=== PATIENT | female | born 1950 | race Caucasian/White ===

== ENCOUNTER → 2017-02-25 | Outpatient (CLI) | payer OTHER ==
[2017-02-25 13:17] LABS: BASO % 0.2 %; BASO ABS # 0.01 K/uL (0-0.2); COMPLETE YES; EOS % 0.7 %; HEMATOCRIT 39.8 % (37-47); IG% 0.2 %; LYMPH % 37.5 %; LYMPH ABS # 1.59 K/uL (1.2-3.4); MEAN CELL VOLUME 90.5 fL (80-100); MEAN CORPUSCULAR HEMOGLOBIN 31.1 pg (25-34); MEAN CORPUSCULAR HGB CONC 34.4 g/dl (32-36); MEAN PLATELET VOLUME 9.6 fL (7.4-10.4); MONO % 21.9 %; NEUT % 39.5 %; PLATELET COUNT 386 K/uL (130-400); WHITE BLOOD COUNT 4.24 K/uL (4.8-10.8)
[2017-02-25 13:39] LABS: ALB/GLOB RATIO 0.7 (0.9-2); ALT/SGPT 20 U/L (12-78); AST/SGOT 20 U/L (15-37); BLOOD UREA NITROGEN 13 mg/dl (7-18); BUN/CREATININE RATIO 17.2 (10-20); CALCIUM 9.1 mg/dl (8.5-10.1); CARBON DIOXIDE 30 mmol/L (21-32); CHLORIDE 102 mmol/L (98-107); CREATININE 0.76 mg/dl (0.60-1.20); GLUCOSE 82 mg/dl (70-99); POTASSIUM 3.8 mmol/L (3.5-5.1); SODIUM 136 mmol/L (136-145)
[2017-02-25 13:41] LABS: ALKALINE PHOSPHATASE 112 U/L (45-117); CHOLESTEROL 199 mg/dl (0-200); CHOLESTEROL/HDL RATIO 4.2; HDL CHOLESTEROL 47 mg/dl; LDL CHOLESTEROL CALCULATED 119 mg/dl; TRIGLYCERIDES 166 mg/dl (0-150); VERY LOW DENSITY LIPOPROT CALC 33 mg/dl
== END | disposition home or self-care (01) ==
LOC: C.LABMFLN 08:58
PROVIDERS: ATTEND Family Medicine
DX: R06.02 Shortness of breath (principal)

== ENCOUNTER → 2017-02-25 | Outpatient (CLI) | payer OTHER | END | disposition home or self-care (01) | LOC: C.PAPS 14:28 | PROVIDERS: ATTEND Family Medicine | DX: Z12.4 Encounter for screening for malignant neoplasm of cervix (principal) ==

== ENCOUNTER → 2017-03-19 | Outpatient (CLI) | payer OTHER ==
[~2017-03-19] MED LIST: REGADENOSON 0.4 MG/5 ML SYR ONE
--- NOTE | 2017-03-20 23:58 | MYOCARDIAL PERFUSION SCAN ---
ONE-DAY NUCLEAR MEDICINE TECHNETIUM-99M CARDIOLITE MYOCARDIAL PERFUSION SCAN CLINICAL HISTORY: The patient has been experiencing progressive exertional dyspnea. COMPARISON: None. TECHNIQUE: For the stress portion of the study, 32.3 mCi of Technetium 99 m Cardiolite IV was injected at 1:05 p.m. on 03/19/2017. 30 minutes following the injection, imaging of the heart was performed in multiple projection. For the rest portion of the study, 10.2 mCi of Technetium 99 m Cardiolite was injected IV at 11:30 a.m. One hour following the injection, imaging of the heart was performed in the same projections. For the stress portion of the study, 0.4 mg of Lexiscan was injected intravenously as per protocol. The patient did not experience chest discomfort. Baseline EKG showed normal sinus rhythm without abnormalities. There were no ST segment changes seen with the Lexiscan infusion. Following the study, the patient was hemodynamically stable without complaints. FINDINGS: The short axis, vertical long axis, horizontal long axis images were reviewed in detail. There is normal tracer uptake at both stress and rest. This rules out prior myocardial infarction and evidence of stress induced myocardial ischemia. The left ventricle demonstrates normal systolic function without wall motion abnormality. The left ventricular ejection fraction is 59%. IMPRESSION: 1. No scintigraphic evidence of a prior myocardial infarction or stress induced myocardial ischemia. 2. No Lexiscan induced chest pain. 3. No Lexiscan induced EKG changes. 4. Normal left ventricular systolic function without wall motion abnormality. Left ventricular ejection fraction is 59%.
== END | disposition home or self-care (01) ==
LOC: C.NUCL 11:00
PROVIDERS: ATTEND Family Medicine
DX: R06.02 Shortness of breath (principal)

== ENCOUNTER → 2017-06-03 | Outpatient (CLI) | payer OTHER ==
[2017-06-03 13:31] LABS: CHOLESTEROL/HDL RATIO 2.6
== END | disposition home or self-care (01) ==
LOC: C.LABMFLN 08:40
PROVIDERS: ATTEND Family Medicine
DX: E78.00 Pure hypercholesterolemia, unspecified (principal)

== ENCOUNTER 2017-08-07 09:08 | Inpatient (IN) | payer OTHER ==
[2017-07-05 14:29] VITALS: BMI 28.0
--- NOTE | 2017-07-05 15:03 | PAT Medication Instructions ---
Service Date Jul 05, 2017. Current Home Medication List Acetaminophen (Tylenol 8 Hour Arthritis), 2 TAB PO QAM PRN for Pain Atorvastatin (Lipitor), 10 MG PO QAM Calcium/Vitamin D (Os-Rakesh 500 Plus D), 1 TAB PO HS Cevimeline Hcl (Cevimeline Hcl), 1 TAB PO BID Fish Oil (Houston-3), 1 CAP PO QAM Glucosamine-Chondroitin (Osteo Bi-Flex Regular Str), 1 TAB PO BID Multiple Vitamins W/ Minerals (Centrum Silver 50+Women), 1 TAB PO QAM Omeprazole (Prilosec), 20 MG PO QAM Turmeric (Curcuma Longa) (Turmeric), 1 TAB PO QAM Medication Instructions For Your Scheduled Surgery - Hold the following medications 2 weeks prior to surgery: Glucosamine-Chondroitin (Osteo Bi-Flex Regular Str), 1 TAB PO BID Turmeric (Curcuma Longa) (Turmeric), 1 TAB PO QAM Fish Oil (Houston-3), 1 CAP PO QAM - Hold the following medications the morning of surgery: Multiple Vitamins W/ Minerals (Centrum Silver 50+Women), 1 TAB PO QAM - Take the following medications the morning of surgery with a sip of water OTHERWISE NOTHING TO EAT OR DRINK AFTER MIDNIGHT: Acetaminophen (Tylenol 8 Hour Arthritis), 2 TAB PO QAM PRN for Pain (may take if needed up 4 hours prior to surgery) Atorvastatin (Lipitor), 10 MG PO QAM Omeprazole (Prilosec), 20 MG PO QAM Cevimeline Hcl (Cevimeline Hcl), 1 TAB PO BID - Take the following medications as scheduled the night before surgery: Acetaminophen (Tylenol 8 Hour Arthritis), 2 TAB PO QAM PRN for Pain Cevimeline Hcl (Cevimeline Hcl), 1 TAB PO BID Calcium/Vitamin D (Os-Rakesh 500 Plus D), 1 TAB PO HS If you have any questions please call us at [phone] or [phone] or [phone]
[2017-07-05 15:34] LABS: BASO % 0.2 %; BASO ABS # 0.01 K/uL (0-0.2); EOS % 0.4 %; EOS ABS # 0.02 K/uL (0-0.5); HEMATOCRIT 39.8 % (37-47); HEMOGLOBIN 13.4 g/dL (12.0-16.0); IG# 0.01 K/uL (0.00-0.02); LYMPH % 44.2 %; MEAN CORPUSCULAR HEMOGLOBIN 31.3 pg (25-34); MEAN CORPUSCULAR HGB CONC 33.7 g/dl (32-36); MEAN PLATELET VOLUME 9.5 fL (7.4-10.4); MONO % 16.1 %; NEUT % 38.9 %; NEUT ABS # 1.94 K/uL (1.4-6.5); PLATELET COUNT 374 K/uL (130-400); RED CELL DISTRIBUTION WIDTH CV 12.7 % (11.5-14.5); RED CELL DISTRIBUTION WIDTH SD 43.4 fL (36.4-46.3); WHITE BLOOD COUNT 4.98 K/uL (4.8-10.8)
[2017-07-05 16:26] LABS: CREATININE 0.76 mg/dl (0.60-1.20)
[2017-07-05 16:27] LABS: ALBUMIN 3.9 gm/dl (3.4-5.0); CALCIUM 9.2 mg/dl (8.5-10.1); POTASSIUM 3.9 mmol/L (3.5-5.1)
[2017-07-06 07:46] LABS: HEMOGLOBIN A1C 5.7 % (4.5-5.6)
--- NOTE | 2017-08-06 12:28 | HISTORY & PHYSICAL EXAMINATION ---
DATE OF ADMISSION: 08/07/2017 CHIEF COMPLAINT: Chronic right knee pain. HISTORY OF PRESENT ILLNESS: This is a 67-year-old female patient of Dr. Mo'josue complaining of chronic right knee pain, longstanding, now progressively getting worse. The patient has failed conservative treatment including intraarticular injections, over the counter Osteo Bi-Flex and turmeric. She has also tried several braces. The patient has increased pain with weightbearing activities and her pain does interfere with her activities of daily living. PAST MEDICAL HISTORY: Hypercholesterolemia, acid reflux, and dental issues. SOCIAL HISTORY: Nonsmoker and nondrinker. PAST SURGICAL HISTORY: Shoulder surgery. FAMILY HISTORY: Noncontributory. REVIEW OF SYSTEMS: Chronic right knee pain and instability. Otherwise denies any shortness of breath, chest pain, nausea, vomiting or any other joint complaints. MEDICATIONS: Omeprazole 20 mg daily, vitamin D3 400 units daily, multivitamin with fluoride daily, calcium 600 plus D 600 mg daily, calcium 200 daily, loratadine 10 mg daily, cevimeline 30 mg t.i.d., atorvastatin 10 mg daily, and omega 3 fish oil daily. ALLERGIES: No known drug allergies. PHYSICAL EXAMINATION: GENERAL: Well-developed, well-nourished 67-year-old female in no acute distress. She is alert and oriented x3 and pleasant. HEENT: Normocephalic, atraumatic. Extraocular motions are intact. Pupils are equal and reactive to light. HEART: Regular rate and rhythm, no murmurs appreciated. LUNGS: Clear. ABDOMEN: Soft, nontender, bowel sounds present. EXTREMITIES: Right knee - limited range of motion of negative 5-110. She has medial joint line tenderness with crepitation with a varus deformity. She has a mild effusion. She has 4/5 strength. NEUROLOGIC: Neurovascularly, she is intact in her right lower extremity. DIAGNOSES: Right knee end-stage osteoarthritis, hypercholesterolemia, acid reflux and dental issues. PLAN: The patient was advised of her diagnosis. Indications, risks, benefits, and postop course have all been reviewed. The patient wished to proceed with a right total knee arthroplasty. Necessary consent forms, preoperative testing and clearances will be obtained.
[2017-08-07] VITALS (7 sets, daily range): BP systolic 108–144; BP diastolic 71–93; PULSE 79–106; TEMP 36.4–36.9; O2SAT 95–98; Ht 165.1 cm; Wt 77.5 kg
[~2017-08-07] VITALS: Ht 165.1 cm; Wt 77.5 kg
[2017-08-07] MEDS: TRANEXAMIC ACID INJ 1,000 MG in SYRINGE 0 ML IV SCH ×2 (06:30→12:27)
[~2017-08-07 09:08] MED LIST changes: +ACET650T97 PO; +ACETAMINOPHEN 500 MG TAB PO SCH; +ATOR10TA82 PO; +BUPIVACAINE 0.25% 30 ML VIAL ONE; +BUPIVACAINE 0.5 % 5 MG/1 ML PF 10ML VIAL ONE; +CALC500C70 PO; +CEFAZOLIN 2000MG IV PUSH 15 ML IV SCH; +CEVI1CAP PO; +CeleBREX 200 MG CAP PO SCH; +DEXAMETHASONE 4 MG TAB PO SCH; +FAMOTIDINE 20 MG TAB PO SCH; +GABAPENTIN 300 MG CAP PO SCH; +GLUCTAB18 PO; +LACTATED RINGER'S 1000ML 1,000 ML IV SCH; +LACTATED RINGER'S 1000ML 500 ML IV SCH; +METOCLOPRAMIDE HCL 10 MG TAB PO SCH; +MULT-1092 PO; +OMEG10007 PO; +PRLSR20 PO; -REGADENOSON 0.4 MG/5 ML SYR ONE; +ROPIVACAINE 5MG/ML 30 ML 150 MG, BUPIVACAINE 0.5% MPF INJ 30 ML, EpINEphrine HCL INJ 0.... INFIL SCH; +TURM500T PO
[2017-08-07] MEDS ORDERED: MIDAZOLAM HCL 1 MG/ML 2ML VIAL ONE ×2 (10:35)
[2017-08-07] MEDS ORDERED: FENTANYL CITRATE INJ 50 MCG/1 ML 2 ML VIAL ONE (10:35)
[2017-08-07] MEDS ORDERED: PROPOFOL IV EMULSION 10 MG/ML 20 ML VIAL IV ONE ×2 (10:36→13:08)
[2017-08-07] MEDS ORDERED: LIDOCAINE HCL 2% 2 ML VIAL (20MG/ML) ONE (10:36)
[2017-08-07] MEDS ORDERED: EpHEDrine SULFATE 50MG/5ML SYR ONE (10:36)
--- NOTE | 2017-08-07 12:24 | History & Physical Bridge Note ---
H&P Re-Evaluation Bridge Note: I have examined the patient, reviewed the History & Physical and in the interval since the performance of the History & Physical I have noted the following changes of clinical significance: No changes noted
[2017-08-07] MEDS ORDERED: POVIDONE-IODINE OP SOLN 30 ML BTL ONE (12:28)
[2017-08-07] MEDS ORDERED: BACITRACIN 50000 UNIT VIAL ONE (12:28)
[2017-08-07] MEDS ORDERED: ORTHO JOINT ANESTHETIC ONE (12:28)
[2017-08-07] MEDS ORDERED: ATROPINE SULFATE 0.1 MG/ML 5ML SYR IV PRN (14:45)
[2017-08-07] MEDS ORDERED: EpHEDrine SULFATE INJ 50 MG/ML AMP IV PRN (14:45)
--- NOTE | 2017-08-07 14:51 | [facility] Post Operative Brief Note ---
Immediate Operative Summary Operative Date Aug 07, 2017. Pre-Operative Diagnosis Right Knee End Stage Osteoarthritis Post-Operative Diagnosis Right Knee End State Osteoarthritis Procedure(s) Performed Right Total Knee Arthroplasty Surgeon Dr. Mo Merchandise Supervisor Surgeon(s) Mann Ferreira PA-C Estimated Blood Loss 10ml Findings Consistent with Post-Op Diagnosis Specimens A: Right knee bone and tissue Drains 2 hemovac Anesthesia Type MAC Spinal Regional Complication(s) none
[2017-08-07] MEDS ORDERED: BISACODYL 10 MG SUPP PR PRN (15:00)
[2017-08-07] MEDS ORDERED: TRAMADOL HCL 50 MG TAB PO PRN (15:00)
[2017-08-07] MEDS ORDERED: ONDANSETRON INJ 2 MG/ML 2 ML VIAL IV PRN (15:00)
[2017-08-07] MEDS ORDERED: OXYCODONE HCL IR 5 MG TAB (IMMEDIATE RELEASE) PO PRN (15:00)
[2017-08-07] MEDS ORDERED: MoRPHine SULFATE 2 MG/ML CARP IV PRN (15:00)
[2017-08-07] MEDS ORDERED: MAGNESIUM HYDROXIDE SUSP 30 ML UDC PO PRN (15:00)
[2017-08-07] MEDS ORDERED: ZOLPIDEM TARTRATE 5 MG TAB PO PRN (15:00)
[2017-08-07] MEDS ORDERED: METOCLOPRAMIDE HCL INJ 5 MG/ML 2 ML VIAL IV PRN (15:00)
[2017-08-07] MEDS ORDERED: SOD PHOSPHATE/SOD BIPHOSPHATE ENEMA 132 ML BTL PR PRN (15:00)
--- NOTE | 2017-08-07 15:42 | Anesthesiology Progress Note ---
Anesthesia Post Op Note Date & Time Aug 07, 2017 at 15:42 Vital Signs Pain Intensity: 0 Vital Signs Past 12 Hours Date Time Temp Pulse Resp B/P (MAP) Pulse Ox O2 Delivery O2 Flow Rate FiO2 08/07/17 15:32 36.7 81 15 124/73 (86) 97 Nasal Cannula 2 08/07/17 15:26 119/74 08/07/17 15:23 89 15 08/07/17 15:23 88 15 93 08/07/17 15:22 90 13 08/07/17 15:22 90 13 95 08/07/17 15:20 130/75 08/07/17 15:17 90 15 08/07/17 15:17 88 15 96 08/07/17 15:16 101/79 08/07/17 15:12 96 12 08/07/17 15:12 95 12 92 08/07/17 15:11 127/71 08/07/17 15:07 96 15 93 08/07/17 15:07 96 15 08/07/17 15:05 114/71 08/07/17 15:02 97 15 109/70 92 08/07/17 15:02 97 15 08/07/17 15:02 36.1 98 16 109/70 95 Room Air 10 08/07/17 10:00 36.8 106 20 144/93 95 Room Air Notes Mental Status: alert / awake / arousable, participated in evaluation Pt Amnestic to Procedure: Yes Nausea / Vomiting: adequately controlled Pain: adequately controlled Airway Patency, RR, SpO2: stable & adequate BP & HR: stable & adequate Hydration State: stable & adequate Neuraxial Anesthesia: was administered, sensory block is resolving Anesthetic Complications: no major complications apparent
--- NOTE | 2017-08-07 15:51 | DIAGNOSTIC IMAGING REPORT ---
R KNEE 1 OR 2 VIEWS ROUTINE HISTORY: 67 years-old Female AP/LATERAL IN PACU RIGHT KNEE status post right knee total joint arthroplasty. Degenerative joint disease. COMPARISON: None available TECHNIQUE: 2 views of the right knee FINDINGS: Postoperative changes from recent placement of a right knee total joint arthroplasty with patellar resurfacing. Expected postsurgical soft tissue swelling and deep tissue air about the knee with anterior midline skin cristina and a surgical drain in place. Alignment is satisfactory. No periprosthetic fracture or retained foreign body. IMPRESSION: Status post placement of a right knee total joint arthroplasty with patellar resurfacing. No complication identified. The above report was generated using voice recognition software. It may contain grammatical, syntax or spelling errors. Electronically signed by: Mike Ji M.D. 08/07/2017 3:50 PM Dictated Date/Time: 08/07/2017 3:48 PM
[2017-08-07] MEDS ORDERED: MoRPHine SULFATE 4 MG/ML 1 ML CARP\\VIAL IV PRN (16:00)
[2017-08-07] MEDS: D5W AND 1/2NSS + 20MEQ KCL 1,000 ML IV SCH (16:49)
--- NOTE | 2017-08-07 18:21 | OPERATIVE REPORT ---
DATE OF OPERATION: 08/07/2017 INDICATION FOR PROCEDURE: The patient is a 67-year-old female who presents with bilateral knee pain, right greater than left. Radiographs demonstrates [id number] in the medial compartment bilaterally and patellofemoral and medial and patellofemoral joint [id number] bilateral. She has failed conservative management. Now presents for operative surgery. PREOPERATIVE DIAGNOSIS: End-stage osteoarthritis, right hip. POSTOPERATIVE DIAGNOSIS: Same. PROCEDURE: Right total knee arthroplasty. SURGEON: Clinton Mo MD. DIVIDING MACHINE OPERATOR HELPER: BRUEC Morejon. ANESTHESIA: Spinal, adductor nerve block and Orthomix. OPERATIVE PROCEDURE: The patient was taken to the operating room, anesthetized under anesthesia as dictated. Pneumatic tourniquet was placed on right upper thigh. Right lower extremity was examined. She had full range of motion of her knee and no instability. She did have crepitation and small effusion. Her right lower extremity was sterilely prepped and draped with ChloraPrep. Leg was elevated, exsanguinated with Esmarch bandage. Pneumatic tourniquet was raised to 325 mmHg. I used the [employer] Persona total knee arthroplasty system for the procedure. We made a longitudinal incision anteriorly across the knee. Skin was incised sharply. Subcutaneous flaps were elevated. Incision was made through medial retinaculum and extended up in the mid third of the quadriceps tendon extending down to the medial tibial tubercle. Intraarticular findings demonstrate she had grade 4 trochlear disease, grade 4 medial facet patellofemoral disease. Rather thin patella. She had bone on bone in the medial compartment. The cruciate ligaments were still intact. To expose the knee, we excised the infrapatellar fat pad, excising the menisci, and excised the cruciate ligaments. Some of the fat pad over the anterior femur for placement of the component in that area was resected. Lateral synovial bands were released. The traction placed exposing the femur. I used a signature MRI templating. The custom femoral cutting guide was positioned appropriately and then pinned in position and then the drill holes for the 4-in-1 cutting block were replaced. The distal femoral cut was then made. The guide was removed and then the 4-in-1 cutting block was placed. The anterior, posterior and chamfer cuts were made. Then, attention was taken to the patella. The knee was extended and a subperiosteal peel lateral release was performed around the patella. Patella width was measured and width was reproduced using freehand cut technique and a 32 x 8.5 mm domed 3 peg patella. The tibia was then subluxed and then we placed the custom tibial cutting block was pinned in position and assessed with the alignment morelia for the alignment, but it looked to be in varus, so we adjusted that, made a proximal tibial cut, but felt posterior slope was not appropriate 3 degrees, so I used an external tibial cutting guide to just posterior slope to 3 degrees proximally. We did note the bone was very soft making the cuts. We used the laminar transportation services representative to assess ligamentous balance and we had balanced extension and flexion gaps this time. The tibia was re-exposed and the size D right tibial trial was externally rotated in line with the tibial tubercle, pinned in position and then drilled and punch for the stem was used. The 9 femoral trial was inserted and centered and then we did trial polyethylene components for the medial padded knee MC component. An 11 insert gave balanced ligaments through full range of motion and patellar trial in place. Patella tracked centrally. Trials were removed. The anesthetic cocktail was injected per protocol. The knee was copiously irrigated with pulsatile lavage with antibiotic solution and bacitracin. The final components was cemented with Simplex G cement. Final components for the 9 narrow right Carleen [employer] Persona femur, the right D tibia, the 11 mm MC right poly and the 32 x 8.5 mm patella which was domed patella component. While cement cured, the Betadine soaked, we used per protocol. After the cement cured, the knee was copiously irrigated with antibiotic solution and bacitracin. Two drains were brought out laterally and then the quadriceps tendon and medial retinaculum were closed with interrupted [id number] #1 Vicryl sutures. The knee was taken through full range of motion and repair was secure. Subcutaneous tissues closed with interrupted 2-0 Vicryl, skin was closed with cristina and Silverlon dressing was applied. The patient tolerated the procedure well with about 10 mL of blood loss. Mann Ferreira PA-C, was my first aid nurse. He functioned as first aid nurse for the entire procedure. He assisted in patient positioning, prepping, draping, assisted in soft tissue retraction, leg positioning, and performed the fascial, subcutaneous and skin closure and will participate in postop care of the patient. I attest to the content of the Intraoperative Record and any orders documented therein. Any exception s are noted below.
[2017-08-07] MEDS: CALCIUM 600MG + VIT D 400 IU TAB PO SCH (20:55)
[2017-08-07] MEDS: DOCUSATE SODIUM 100 MG CAP PO SCH (20:55)
[2017-08-07] MEDS: CeleBREX 200 MG CAP PO SCH (20:56)
[2017-08-07] MEDS: ASPIRIN 81 MG ECTAB PO SCH (20:56)
[2017-08-07] MEDS: CEFAZOLIN IV SCH (20:59)
[2017-08-07] MEDS ORDERED: INFLUENZA ADMINISTRATION CHARGE ONE (21:00)
[2017-08-07] MEDS ORDERED: INFLUENZA VIRUS QUAD VACCINE 0.5 ML SYR IM. ONE (21:00)
[2017-08-07] MEDS: ACETAMINOPHEN 500 MG TAB PO SCH (21:33)
[2017-08-08] MEDS: D5W AND 1/2NSS + 20MEQ KCL 1,000 ML IV SCH ×2 (02:10→13:18)
[2017-08-08 03:47] VITALS: BP 106/68; PULSE 66; TEMP 36.7; O2SAT 98
[2017-08-08] MEDS: CEFAZOLIN IV SCH (04:02)
[2017-08-08] MEDS: ACETAMINOPHEN 500 MG TAB PO SCH ×3 (05:30→21:23)
[2017-08-08 06:54] VITALS: BP 121/86; PULSE 86; TEMP 36.6; O2SAT 99
[2017-08-08 07:01] LABS: HEMATOCRIT 32.9 % (37-47); HEMOGLOBIN 11.2 g/dL (12.0-16.0); MEAN CELL VOLUME 92.7 fL (80-100); MEAN CORPUSCULAR HEMOGLOBIN 31.5 pg (25-34); MEAN PLATELET VOLUME 9.4 fL (7.4-10.4); PLATELET COUNT 311 K/uL (130-400); RED CELL DISTRIBUTION WIDTH CV 12.7 % (11.5-14.5); RED CELL DISTRIBUTION WIDTH SD 43.3 fL (36.4-46.3); WHITE BLOOD COUNT 11.88 K/uL (4.8-10.8)
[2017-08-08 07:34] LABS: CALCIUM 8.7 mg/dl (8.5-10.1); CREATININE 0.8 mg/dl (0.60-1.20); POTASSIUM 4.2 mmol/L (3.5-5.1)
[2017-08-08] MEDS: ATORVASTATIN 10 MG TAB PO SCH (08:33)
[2017-08-08] MEDS: ASPIRIN 81 MG ECTAB PO SCH ×2 (08:34→20:51)
[2017-08-08] MEDS: MULTIVITAMIN TAB PO SCH (08:34)
[2017-08-08] MEDS: CeleBREX 200 MG CAP PO SCH ×2 (08:34→20:51)
[2017-08-08] MEDS: PANTOprazole SOD 40 MG TAB PO SCH (08:34)
[2017-08-08] MEDS: DOCUSATE SODIUM 100 MG CAP PO SCH ×2 (08:34→20:51)
--- NOTE | 2017-08-08 08:48 | Orthopedic Progress Note ---
Orthopedic Progress Note Date of Service Aug 08, 2017. Subjective Post OP Day: 1 Reports: feeling well, pain controlled w PO medications, Denies: complaints, chest pain, SOB, nausea / vomiting, light headedness, calf pain Objective calves soft nontender, N/V intact, capillary refill less than 2 sec., dressing C /D/I, A&O x3, toes mobile Date Time Temp Pulse Resp B/P (MAP) Pulse Ox O2 Delivery O2 Flow Rate FiO2 08/08/17 07:30 Room Air 08/08/17 06:54 36.6 86 19 121/86 (98) 99 Room Air 08/08/17 03:47 36.7 66 16 106/68 (81) 98 Room Air 08/07/17 23:33 Room Air 08/07/17 23:00 36.6 81 16 118/74 (89) 96 Room Air 08/07/17 19:06 36.4 88 16 108/71 (83) 98 Nasal Cannula 2.0 08/07/17 18:00 36.9 87 17 118/75 (89) 97 Nasal Cannula 2.0 08/07/17 17:03 36.4 82 16 118/75 (89) 98 Nasal Cannula 2.0 08/07/17 16:27 36.6 79 16 116/74 (88) 97 Nasal Cannula 2.0 08/07/17 16:10 Nasal Cannula 2.0 08/07/17 16:10 Nasal Cannula 2.0 08/07/17 16:00 36.4 81 16 121/74 (90) 98 Nasal Cannula 2.0 08/07/17 15:51 117/75 08/07/17 15:47 82 17 98 08/07/17 15:47 82 17 08/07/17 15:46 120/74 08/07/17 15:42 83 16 97 08/07/17 15:42 83 16 08/07/17 15:41 133/71 08/07/17 15:37 85 12 08/07/17 15:37 87 12 96 08/07/17 15:35 124/73 08/07/17 15:32 36.7 81 15 124/73 (86) 97 Nasal Cannula 2 08/07/17 15:32 94 13 95 08/07/17 15:32 93 13 08/07/17 15:30 122/77 08/07/17 15:27 88 12 95 08/07/17 15:27 87 12 08/07/17 15:26 119/74 08/07/17 15:23 89 15 08/07/17 15:23 88 15 93 08/07/17 15:22 90 13 08/07/17 15:22 90 13 95 08/07/17 15:20 130/75 08/07/17 15:17 90 15 08/07/17 15:17 88 15 96 08/07/17 15:16 101/79 08/07/17 15:12 96 12 08/07/17 15:12 95 12 92 08/07/17 15:11 127/71 08/07/17 15:07 96 15 93 08/07/17 15:07 96 15 08/07/17 15:05 114/71 08/07/17 15:02 97 15 109/70 92 08/07/17 15:02 97 15 08/07/17 15:02 36.1 98 16 109/70 95 Room Air 10 08/07/17 10:00 36.8 106 20 144/93 95 Room Air Laboratory Results 24 Hours: Test 08/08/17 06:36 Hematocrit 32.9 % Hemoglobin 11.2 g/dL Assessment & Plan Assessment: POD #1, Right TKA Plan: PT/ OT DVT proph- ASA D/C planning- Home w OPPT vs. HH Inhouse Planning Pain Management: Celebrex, Ultram, Morphine, PO Tylenol, Oxy IR DVT Prophylaxis: TEDs, SCDs, ASA Discharge Planning Discharge Planning: home with home health, home with oppt, uncertain Pain Management: Celebrex, PO Tylenol, Oxy IR DVT Prophylaxis: TEDs, ASA Therapy: Physical Therapy, Occupational Therapy
--- NOTE | 2017-08-08 12:56 | Medical Consult ---
Consultation Date of Consultation: Aug 08, 2017. Attending Physician: Clinton Mo M.D. Reason for Consultation: Post op medical management History of Present Illness Ms. Cao is feeling good. She is post op day 1. Her pain is well controlled. She has no complaints. Pmhx of Sjogren's syndrome, hypercholesteremia, acid reflux ROS Constitutional: no chills, aches, sweats or fever Respiratory: no sob,cough, sputum, or wheezing Cardiac: no chest pain, palpitations, edema, orthopnea or lightheadedness GI: no abdominal pain, nausea, vomiting, diarrhea or constipation : no dysuria or hesitancy Extremities: no joint pain or weakness Skin: no rash All other systems reviewed and negative Social History Smoking Status: Never Smoker Smokeless Tobacco Use: No Alcohol Use: occasionally (it's been about a year since the last drink) Drug Use: none Marital Status: Housing Status: lives with significant other 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 ) Allergies Coded Allergies: No Known Allergies (Unverified , 08/07/17) Current Inpatient Medications Current Inpatient Medications Medications (Trade) Dose Ordered Sig/Larry Route Start Time Stop Time Status Last Admin Dose Admin Atorvastatin Calcium (Lipitor Tab) 10 mg QAM PO 08/08/17 09:00 09/07/17 08:59 08/08/17 08:33 10 MG Calcium/Vitamin D (Caltrate Plus Tab) 1 tab HS PO 08/07/17 21:00 09/06/17 20:59 08/07/17 20:55 1 TAB Miscellaneous Information (Order Awaiting Action) 1 ea QS N/A 08/08/17 00:00 09/07/17 00:00 Potassium Chloride/Dextrose/ Sod Cl 1,000 ml @ 100 mls/hr Q10H IV 08/07/17 16:30 08/08/17 16:29 08/08/17 02:10 100 MLS/HR Celecoxib (CeleBREX CAP) 200 mg BID PO 08/07/17 21:00 09/06/17 20:59 08/08/17 08:34 200 MG Oxycodone HCl (Roxicodone Immediate Rel Tab) 1 TABLET FOR PAIN RATING... Q4H PRN PO 08/07/17 15:00 08/21/17 14:59 Morphine Sulfate (MoRPHine SULFATE INJ) 2 mg Q2H PRN IV 08/07/17 15:00 08/21/17 14:59 Acetaminophen (Tylenol Tab) 1,000 mg Q8H PO 08/07/17 22:00 09/06/17 21:59 08/08/17 05:30 1,000 MG Magnesium Hydroxide (Milk Of Magnesia Susp) 30 ml Q6H PRN PO 08/07/17 15:00 09/06/17 14:59 Bisacodyl (Dulcolax Supp) 10 mg DAILY PRN MI 08/07/17 15:00 09/06/17 14:59 Sodium Biphosphate/ Sodium Phosphate (Fleet Enema) 132 ml DAILY PRN MI 08/07/17 15:00 09/06/17 14:59 Docusate Sodium (coLACE CAP) 100 mg BID PO 08/07/17 21:00 09/06/17 20:59 08/08/17 08:34 100 MG Diphenhydramine HCl (Benadryl Cap) 25 mg Q8H PRN PO 08/07/17 15:00 09/06/17 14:59 Zolpidem Tartrate (Ambien Tab) 5 mg HSZ PRN PO 08/07/17 15:00 09/06/17 14:59 Multivitamins (Multivitamin Tab) 1 tab QAM PO 08/08/17 09:00 09/07/17 08:59 08/08/17 08:34 1 TAB Ondansetron HCl (Zofran Inj) 4 mg Q6H PRN IV 08/07/17 15:00 09/06/17 14:59 Metoclopramide HCl (Reglan Inj) 10 mg Q6H PRN IV 08/07/17 15:00 09/06/17 14:59 Pantoprazole Sodium (Protonix Tab) 40 mg QAM PO 08/08/17 09:00 08/12/17 08:59 08/08/17 08:34 40 MG Tramadol HCl (Ultram Tab) 1 tablet for pain rating... Q4H PRN PO 08/07/17 15:00 09/06/17 14:59 Aspirin (Ecotrin Tab) 81 mg BID PO 08/07/17 21:00 09/06/17 20:59 08/08/17 08:34 81 MG Morphine Sulfate (MoRPHine SULFATE INJ) 4 mg Q2H PRN IV 08/07/17 16:00 08/21/17 15:59 Physical Exam Date Time Temp Pulse Resp B/P (MAP) Pulse Ox O2 Delivery O2 Flow Rate FiO2 08/08/17 07:30 Room Air 08/08/17 06:54 36.6 86 19 121/86 (98) 99 Room Air 08/08/17 03:47 36.7 66 16 106/68 (81) 98 Room Air 08/07/17 23:33 Room Air 08/07/17 23:00 36.6 81 16 118/74 (89) 96 Room Air 08/07/17 19:06 36.4 88 16 108/71 (83) 98 Nasal Cannula 2.0 08/07/17 18:00 36.9 87 17 118/75 (89) 97 Nasal Cannula 2.0 08/07/17 17:03 36.4 82 16 118/75 (89) 98 Nasal Cannula 2.0 08/07/17 16:27 36.6 79 16 116/74 (88) 97 Nasal Cannula 2.0 08/07/17 16:10 Nasal Cannula 2.0 08/07/17 16:10 Nasal Cannula 2.0 08/07/17 16:00 36.4 81 16 121/74 (90) 98 Nasal Cannula 2.0 08/07/17 15:51 117/75 08/07/17 15:47 82 17 98 08/07/17 15:47 82 17 08/07/17 15:46 120/74 08/07/17 15:42 83 16 97 08/07/17 15:42 83 16 08/07/17 15:41 133/71 08/07/17 15:37 85 12 08/07/17 15:37 87 12 96 08/07/17 15:35 124/73 08/07/17 15:32 36.7 81 15 124/73 (86) 97 Nasal Cannula 2 08/07/17 15:32 94 13 95 08/07/17 15:32 93 13 08/07/17 15:30 122/77 08/07/17 15:27 88 12 95 08/07/17 15:27 87 12 08/07/17 15:26 119/74 08/07/17 15:23 89 15 08/07/17 15:23 88 15 93 08/07/17 15:22 90 13 08/07/17 15:22 90 13 95 08/07/17 15:20 130/75 08/07/17 15:17 90 15 08/07/17 15:17 88 15 96 08/07/17 15:16 101/79 08/07/17 15:12 96 12 08/07/17 15:12 95 12 92 08/07/17 15:11 127/71 08/07/17 15:07 96 15 93 08/07/17 15:07 96 15 08/07/17 15:05 114/71 08/07/17 15:02 97 15 109/70 92 08/07/17 15:02 97 15 08/07/17 15:02 36.1 98 16 109/70 95 Room Air 10 Laboratory Results Last 24 Hours Test 08/07/17 14:00 08/08/17 06:36 Hepatitis C Antibody Screen NEG White Blood Count 11.88 K/uL Red Blood Count 3.55 M/uL Hemoglobin 11.2 g/dL Hematocrit 32.9 % Mean Corpuscular Volume 92.7 fL Mean Corpuscular Hemoglobin 31.5 pg Mean Corpuscular Hemoglobin Concent 34.0 g/dl RDW Standard Deviation 43.3 fL RDW Coefficient of Variation 12.7 % Platelet Count 311 K/uL Mean Platelet Volume 9.4 fL Sodium Level 135 mmol/L Potassium Level 4.2 mmol/L Chloride Level 104 mmol/L Carbon Dioxide Level 26 mmol/L Anion Gap 5.0 mmol/L Blood Urea Nitrogen 14 mg/dl Creatinine 0.80 mg/dl Est Creatinine Clear Calc Drug Dose 71.2 ml/min Estimated GFR () 89.0 Estimated GFR (Non- 76.8 BUN/Creatinine Ratio 17.0 Random Glucose 144 mg/dl Calcium Level 8.7 mg/dl Assessment & Plan Ms. Cao is a 67 year old woman post op day 1 right CECIL. Post op - monitor for acute hemorrhage - cbc am - bowel regimen, pain management, dvt prophylaxis per primary team Sjogren's syndrome - continue cevimeline - patient's is bringing this from home Acid reflux - continue protonix HLD - continue statin Hyperglycemia - A1c 5.7 - check prp in am and monitor - likely transient due to stress given A1c Ms. Cao is doing well medically. The hospitalist service will sign off for now, please let us know if we can be of further help in the future. i personally examined pt and verified all marie points ailyn DENIS feeling ok overall trying to mvoe and be out of bed doing well vitals noted nad breathing unlabored no pallor or icterus hyperglycemia - stress response. f/u as outpt periodically since A1c barely into prediabetic range otherwise as above
[2017-08-08 15:11] VITALS: BP 117/73; PULSE 79; TEMP 36.7; O2SAT 100
[2017-08-08] MEDS: CEVIMELINE 30 MG CAP PO SCH (20:56)
[2017-08-08] MEDS: CALCIUM 600MG + VIT D 400 IU TAB PO SCH (21:22)
[2017-08-09] VITALS: BP 129/80; PULSE 76; TEMP 36.7; O2SAT 98
[2017-08-09] MEDS: ACETAMINOPHEN 500 MG TAB PO SCH (05:42)
[2017-08-09 06:44] LABS: HEMATOCRIT 31.5 % (37-47); HEMOGLOBIN 10.7 g/dL (12.0-16.0); MEAN CELL VOLUME 91.6 fL (80-100); MEAN CORPUSCULAR HEMOGLOBIN 31.1 pg (25-34); MEAN PLATELET VOLUME 9.4 fL (7.4-10.4); PLATELET COUNT 313 K/uL (130-400); RED CELL DISTRIBUTION WIDTH CV 12.9 % (11.5-14.5); RED CELL DISTRIBUTION WIDTH SD 43.3 fL (36.4-46.3); WHITE BLOOD COUNT 7.41 K/uL (4.8-10.8)
[2017-08-09 07:06] LABS: CALCIUM 8.4 mg/dl (8.5-10.1); CREATININE 0.74 mg/dl (0.60-1.20); POTASSIUM 3.9 mmol/L (3.5-5.1)
[2017-08-09 07:10] VITALS: BP 138/86; PULSE 86; TEMP 36.6; O2SAT 97
[2017-08-09] MEDS: PANTOprazole SOD 40 MG TAB PO SCH (08:35)
[2017-08-09] MEDS: ATORVASTATIN 10 MG TAB PO SCH (08:35)
[2017-08-09] MEDS: DOCUSATE SODIUM 100 MG CAP PO SCH (08:35)
[2017-08-09] MEDS: MULTIVITAMIN TAB PO SCH (08:35)
--- NOTE | 2017-08-09 08:42 | Orthopedic Progress Note ---
Orthopedic Progress Note Date of Service Aug 09, 2017. Subjective Post OP Day: 2 Reports: feeling well, pain controlled w PO medications, Denies: complaints, chest pain, SOB, nausea / vomiting, light headedness, calf pain Objective calves soft nontender, N/V intact, capillary refill less than 2 sec., dressing C /D/I, A&O x3, toes mobile Silverlon in tact. Date Time Temp Pulse Resp B/P (MAP) Pulse Ox O2 Delivery O2 Flow Rate FiO2 08/09/17 07:10 36.6 86 16 138/86 (103) 97 Room Air 08/09/17 00:00 36.7 76 16 129/80 (96) 98 Room Air 08/08/17 23:35 Room Air 08/08/17 15:40 Room Air 08/08/17 15:11 36.7 79 18 117/73 (88) 100 Room Air Laboratory Results 24 Hours: Test 08/09/17 06:16 Hematocrit 31.5 % Hemoglobin 10.7 g/dL Assessment & Plan Assessment: POD #2, Right TKA Plan: PT/ OT DVT proph- ASA D/C planning- Home w OPPT today. Inhouse Planning Pain Management: Celebrex, Ultram, Morphine, PO Tylenol, Oxy IR DVT Prophylaxis: TEDs, SCDs, ASA Discharge Planning Discharge Planning: home with home health, home with oppt, uncertain Pain Management: Celebrex, PO Tylenol, Oxy IR DVT Prophylaxis: TEDs, ASA Therapy: Physical Therapy, Occupational Therapy
[2017-08-09] MEDS ORDERED: ASPEC81 PO (08:45)
[2017-08-09] MEDS ORDERED: ACET-24 PO (08:45)
[2017-08-09] MEDS ORDERED: RXC5 PO (08:45)
[2017-08-09] MEDS ORDERED: CLB200 PO (08:45)
--- NOTE | 2017-08-09 08:47 | Discharge Instructions ---
Discharge Instructions Date of Service Aug 09, 2017. Admission Reason for Admission: Right Knee Osteoarthritis Discharge Discharge Diagnosis / Problem: Right TKA Discharge Goals Goal(s): Improve function Activity Recommendations Activity Limitations: as noted below . Instructions / Follow-Up Instructions / Follow-Up ACTIVITY RECOMMENDATIONS: SELF CARE INSTRUCTIONS AFTER TOTAL KNEE REPLACEMENT A. You may need to continue a physical therapy program after discharge from the hospital. There are several options available to you. Your doctor will assist you in selecting the best one for you. 1. An out-patient facility 2 to 3 times a week for therapy or home therapy. 2. Continue working on all exercises taught to you in the hospital. Your goals should be to increase bending of your knee to 90 degrees and beyond and to fully straighten your knee. B. You may progress at your own pace from walking with a walker or crutches to a cane; then to no assistive devices. C. Make walking a part of your daily routine. Be up as much as comfortable with rest periods throughout the day. Rest with leg elevation is very important. Use the ice wrap frequently for the first 3-4 weeks. D. There are no restrictions on activities. You may ride in a car, shop, participate in rn ambulatory and all social activities. E. Wear the long elastic stockings (RUBINA hose) 20 hours a day for 2 weeks after surgery. They can be removed several times a day for laundering and for a bath. F. You may shower, no tub baths until cleared by your doctor. SPECIAL CARE INSTRUCTIONS: VERY IMPORTANT TO READ AND REVIEW A. There are a few signs you need to watch for after you are home. Call [facility] if you notice any of the followin. Increased severe knee pain. Some pain is expected especially when you exercise. 2. Increased swelling in your leg or knee; pain or swelling of the calf muscle in either lower leg. 3. Any fluid drainage from the incision. 4. Shortness of breath or chest pain. B. Please call [facility] at if you have any concerns or questions about your operation or recovery. The doctor or his nurse will return your call promptly. C. You must take antibiotics before dental work, bladder, bowel or other surgery. Your doctor will provide you with a permanent care to carry describing this precaution. IMPORTANT: * REMEMBER TO TAKE ASPIRIN, 81 MG, TWICE DAILY FOR 4 WEEKS UNLESS OTHERWISE DIRECTED. THIS IS YOUR BLOOD THINNER. * HIGH RISK PATIENTS MAY BE PRESCRIBED A STRONGER BLOOD THINNER. THIS WILL BE PROVIDED AT DISCHARGE. * CALL IF INCREASED PAIN, REDNESS, DRAINAGE OR FEVER GREATER THAT 101. * WEAR RUBINA HOSE 20 HOURS PER DAY FOR 2 WEEKS. * YOU MAY HAVE A LARGE BAND-AID LIKE DRESSING (SILVERON). THIS WILL REMAIN ON YOUR INCISION FOR 7 DAYS, THEN CAN BE REMOVED. IF INCISION IS LEAKING THROUGH DRESSING, CALL THE OFFICE . FOLLOW UP VISIT: If appointment is not already scheduled: Please call [facility] to make a follow-up appointment for 2 weeks after your surgery at . Current Hospital Diet Patient's current hospital diet: Regular Diet Discharge Diet Recommended Diet: Regular Diet Procedures Procedures Performed: Right Total Knee Arthroplasty Pending Studies Studies pending at discharge: no Laboratory Results Hemoglobin A1c Test 07/05/17 15:10 Range/Units Estimated Average Glucose 117 mg/dl Hemoglobin A1c 5.7 H 4.5-5.6 % Lipid Panel Test 06/03/17 08:52 Range/Units Triglycerides Level 104 0-150 mg/dl Cholesterol Level 136 0-200 mg/dl HDL Cholesterol 53 mg/dl Cholesterol/HDL Ratio 2.6 LDL Cholesterol, Calculated 62 mg/dl Medical Emergencies . Who to Call and When: Medical Emergencies: If at any time you feel your situation is an emergency, please call 911 immediately. . Non-Emergent Contact Non-Emergency issues call your: Primary Care Provider . "Provider Documentation" section prepared by Mann Ferreira. . VTE Core Measure Inpt VTE Proph given/why not?: Other Anticoagulation (asa), T.E.D. Stockings, SCD's [place] Drug Monitoring Program Search Results: patient reviewed within database, no issues identified
[2017-08-09] MEDS: ASPIRIN 81 MG ECTAB PO SCH (09:25)
[2017-08-09] MEDS: CeleBREX 200 MG CAP PO SCH (09:25)
[2017-08-09] MEDS: CEVIMELINE 30 MG CAP PO SCH (09:25)
[2017-08-09 10:11] VITALS: BP 138/86; PULSE 86; TEMP 36.6; O2SAT 97
--- NOTE | 2017-08-12 07:03 | EDITING REQUIRED CODING QUERY ---
CODING QUERY To promote full compliance with coding requirements relating to patient care, provider participation is requested in all cases of microbiological laboratory technician uncertainty. Please assist us with the question(s) below: Coding Question(s): Due to conflicting documentation, please clarify below, regarding the Preoperative and Postoperative Diagnosis for the 08/07/17 Operative Record. ( x ) Preoperative and Postoperative Diagnosis is End-stage Osteoarthritis, right Knee ( ) Preoperative and Postoperative Diagnosis is End-stage Osteoarthritis, right HIP ( ) Other: Specify Physician's Response(s): Thank you Yudith De Anda Principal Diagnosis: "_that condition established after study, to be chiefly responsible for occasioning the admission of the patient to the hospital for care." Co-Existing Principal Diagnosis: "_when two or more diagnoses equally meet the criteria for principal diagnosis as determined by the circumstances of admission, diagnostic work up, and/or therapy provided, and the Alphabetic Index, Tabular List, or another coding guideline does not provide sequencing direction, any one of the diagnoses may be sequenced first." "When the physician has documented what appears to be a current diagnosis in the body of the record, but has not included the diagnosis in the final diagnostic statement, the physician should be asked whether the diagnosis should be added." (Source [facility] 2 QTR90. p3-4)
== END 2017-08-09 11:40 | disposition home or self-care (01) | DRG 470 ==
LOC: C.ACU 09:08 → C.3E 12:14 → ENRESERV 15:34
PROVIDERS: ADMIT Orthopaedic Surgery Sports Medicine; ATTEND Orthopaedic Surgery Sports Medicine
PROC: 0SRC0J9 Replacement of Right Knee Joint with Synthetic Substitute, Cemented, Open Approach (ICD-10-PCS; principal; 2017-08-07 11:30)
DX: M17.11 Unilateral primary osteoarthritis, right knee (principal); R73.9 Hyperglycemia, unspecified; E78.00 Pure hypercholesterolemia, unspecified; K21.9 Gastro-esophageal reflux disease without esophagitis; M35.00 Sjogren syndrome, unspecified; Z79.899 Other long term (current) drug therapy